=== PATIENT | male | born 1970 | race Caucasian/White ===

== ENCOUNTER 2016-09-09 19:37 | Emergency (ER) | payer MEDICAID ==
[~2016-09-09] VITALS: Ht 182.9 cm; Wt 79.4 kg
[2016-09-09 20:26] VITALS: BP 122/83
--- NOTE | 2016-09-09 23:39 | NUR ---
TO ER BED 3
--- NOTE | 2016-09-09 23:57 | NUR ---
Note undone in EDM - 09/10/16 at 0124 by MNFLORM PATIENT PRESENTS TO ED WITH C.O. SOB, COUGH, BODY ACHES, FEVER/CHILLS AND CP FOR 3 DAYS.DENIES N/V/D; SKIN IS PINK/WARM/DRY; AAOX4 WITH EVEN AND STEADY GAIT; LUNGS CLEAR BL; HR EVEN AND REGULAR; PT DENIES ANY FEVER, CP, SOB, OR COUGH AT THIS TIME; PATIENT STATES PAIN OF 9/10 AT THIS TIME; VSS; PATIENT POSITIONED FOR COMFORT; HOB ELEVATED; BEDRAILS UP X2; BED DOWN. ER MADE AWARE OF PT STATUS.
--- NOTE | 2016-09-09 23:57 | NUR ---
PATIENT PRESENTS TO ED WITH C.O. SOB, COUGH, BODY ACHES, FEVER/CHILLS AND CP FOR 3 DAYS.DENIES N/V/D; SKIN IS PINK/WARM/DRY; AAOX4 WITH EVEN AND STEADY GAIT; LUNGS CLEAR BL; HR EVEN AND REGULAR; PATIENT STATES PAIN OF 9/10 AT THIS TIME; VSS; PATIENT POSITIONED FOR COMFORT; HOB ELEVATED; BEDRAILS UP X2; BED DOWN. ER MD MADE AWARE OF PT STATUS.
--- NOTE | 2016-09-10 00:07 | NUR ---
DR. HALE AT BEDSIDE.
[2016-09-10] MEDS ORDERED: IBUPROFEN 800 MG TAB PO ONE (00:20)
[2016-09-10] MEDS ORDERED: AMOXICILLIN 500 MG CAP PO ONE (00:25)
[2016-09-10 01:39] VITALS: BP 100/72
--- NOTE | 2016-09-10 01:39 | NUR ---
Patient discharged with v/s stable. Written and verbal after care instructions given and explained. Patient alert, oriented and verbalized understanding of instructions. Ambulatory with steady gait. All questions addressed prior to discharge. ID band removed. Patient advised to follow up with PMD. Rx of AMOXICILLIN, MOTRIN, AND DEXTGOMETHORPHAN HYDROBROMIDE/ HYDROCHLORIDE given. Patient educated on indication of medication including possible reaction and side effects. Opportunity to ask questions provided and answered.
== END 2016-09-10 01:40 | disposition home or self-care (01) ==
LOC: MED 19:37
DX: J11.1 Influenza due to unidentified influenza virus with other respiratory manifestations (principal)

== ENCOUNTER 2016-12-11 16:48 | Emergency (ER) | payer MEDICAID ==
[~2016-12-11] VITALS: Ht 182.9 cm; Wt 77.1 kg
[2016-12-11 17:04] VITALS: BP 115/60
--- NOTE | 2016-12-11 20:04 | NUR ---
CALLED BY [facility] DEVELOPER FOR XRAY. NO RESPONSE
--- NOTE | 2016-12-11 20:35 | NUR ---
PATIENT LEFT WITHOUT BEING SEEN BY DR. HALE. NO FURTHER CARE PROVIDED FOR PATIENT.
== END 2016-12-11 20:20 | disposition left against medical advice (07) ==
LOC: MED 16:48
DX: R11.2 Nausea with vomiting, unspecified (principal); R19.7 Diarrhea, unspecified; Z53.21 Procedure and treatment not carried out due to patient leaving prior to being seen by health care provider

== ENCOUNTER 2016-12-27 12:40 | Emergency (ER) | payer MEDICAID ==
[~2016-12-27] VITALS: Ht 182.9 cm; Wt 77.1 kg
[2016-12-27 13:15] VITALS: BP 130/76
--- NOTE | 2016-12-27 17:05 | NUR ---
PATIENT LEFT WITHOUT BEING SEEN BY DR. WATTS. NO FURTHER CARE PROVIDED FOR PATIENT.
== END 2016-12-27 17:05 | disposition left against medical advice (07) ==
LOC: MED 12:40
DX: L02.411 Cutaneous abscess of right axilla (principal); Z53.21 Procedure and treatment not carried out due to patient leaving prior to being seen by health care provider

== ENCOUNTER 2017-11-05 22:56 | Emergency (ER) | payer MEDICAID ==
[~2017-11-05] VITALS: Ht 182.9 cm; Wt 79.4 kg
[2017-11-05 23:08] VITALS: BP 130/80
--- NOTE | 2017-11-05 23:10 | NUR ---
PT.AMBULATED TO [facility]
--- NOTE | 2017-11-06 00:26 | NUR ---
Pt states bugs have been crawling all over him and causing the lesions described.
--- NOTE | 2017-11-06 00:30 | NUR ---
PT.AMBULATED TO ER NIA
--- NOTE | 2017-11-06 01:15 | NUR ---
Patient being evaluated by at bedside.
[2017-11-06 01:18] VITALS: BP 130/80
--- NOTE | 2017-11-06 01:22 | NUR ---
PATIENT ELOPED FROM FACILITY. DISCHARGE INSTRUCTIONS NOT GIVEN TO PATIENT. DR. RESTREPO NOTIFIED.
== END 2017-11-06 01:22 | disposition left against medical advice (07) ==
LOC: MED 22:56
DX: F22 Delusional disorders (principal)
CPT/HCPCS: 99281